=== PATIENT | male | born 1970 ===

== ENCOUNTER 2017-09-19 17:34 | Emergency (ER) | payer OTHER ==
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
[2017-09-19 18:26] LABS: Appearance,Urine Cloudy (Clear); Bacteria,Urine Rare /hpf; Bilirubin,Urine Negative (Negative); Blood,Urine Large (Negative); Color,Urine Yellow; Glucose,Urine (UA) Negative (Negative); Ketones,Urine Negative (Negative); Leukocyte Esterase,Urine Large (Negative); Mucus,Urine Occasional /hpf; Protein,Urine 2+ (Negative); RBC,Urine >182 /hpf (0-5); Specific Gravity,Urine 1.021 (1.001-1.035); Squamous Epithelial Cell,Urine 2 /hpf (0-4); Urobilinogen,Urine <2.0 mg/dL (<2.0); WBC,Urine 110 /hpf (0-5)
[2017-09-19 18:32] LABS: Basophils % (A) 0 %; Eosinophils # (A) 0.1 k/uL (0-0.7); Eosinophils % (A) 2 %; HCT 45.3 % (39.0-53.0); HGB 14.9 gm/dL (13.0-17.5); Lymphocytes % (A) 32 %; MCH 30.5 pg (25.0-35.0); MCHC 32.8 g/dL (31.0-37.0); Mean Platelet Volume 10.1; Monocytes # (A) 0.8 k/uL (0-1.0); Monocytes % (A) 9 %; Neutrophils # (A) 5.2 k/uL (1.3-7.7); Neutrophils % (A) 55 %; Platelet Count 255 k/uL (150-450); RBC 4.88 m/uL (4.30-5.90); RDW 12.8 % (11.5-15.5); WBC 9.4 k/uL (3.8-10.6)
[2017-09-19 18:46] LABS: ALT 26 U/L (21-72); AST 22 U/L (17-59); Albumin 4.5 g/dL (3.5-5.0); Alkaline Phosphatase 95 U/L (38-126); Anion Gap 13 mmol/L; Blood Urea Nitrogen 21 mg/dL (9-20); Calcium 10.1 mg/dL (8.4-10.2); Carbon Dioxide 27 mmol/L (22-30); Chloride 105 mmol/L (98-107); Glucose 93 mg/dL (74-99); Potassium 4.8 mmol/L (3.5-5.1); Sodium 145 mmol/L (137-145); Total Bilirubin 0.4 mg/dL (0.2-1.3); Total Protein 7.8 g/dL (6.3-8.2)
--- NOTE | 2017-09-19 19:30 | XR ---
EXAMINATION TYPE: XR KUB portable DATE OF EXAM: 09/19/2017 COMPARISON: NONE INDICATION: Pain TECHNIQUE: Single view abdomen FINDINGS: There is normal colonic bowel gas. Some fecal debris is in the descending colon. No mass effect is ev ident. Psoas margins are normal. No organomegaly is present. Chronic hip changes are present on the right with dislocation and deformity. There is an oval density within the right hemipelvis may be a large bladder calcification among other etiologies. IMPRESSION: 1. Normal bowel gas pattern without evidence of obstruction. 2. Chronic changes of the right hip
[2017-09-19 19:57] VITALS: BP 130/68; PULSE 84; RESP 18; TEMP 98.7
== END 2017-09-19 19:56 | disposition home or self-care (01) ==
LOC: EC 17:34
DX: N30.91 Cystitis, unspecified with hematuria (principal); G82.20 Paraplegia, unspecified; I10 Essential (primary) hypertension; Z79.899 Other long term (current) drug therapy; Z87.440 Personal history of urinary (tract) infections
CPT/HCPCS: 36415; 74018; 80053; 81001; 85025; 87077; 87086; 87186; 99284